=== PATIENT | male | born 2000 | race African-American/Black ===

== ENCOUNTER 2019-04-21 13:37 | Emergency (ER) | payer OTHER ==
[~2019-04-21] VITALS: Ht 175.3 cm; Wt 75.0 kg
[2019-04-21 14:51] LABS: BASOPHILS % 0.6 % (0.0-2.0); EOSINOPHILS % 0.3 % (0.0-5.0); HEMOGLOBIN. 14.5 g/dL (14.0-18.0); LYMPHOCYTES % 20.6 % (20.0-50.0); MEAN CORPUSCULAR HEMOGLOBIN 29.2 pg (28.0-32.0); MEAN CORPUSCULAR VOLUME 84.8 fL (80.0-94.0); MONOCYTES % 6.7 % (2.0-8.0); NEUTROPHILS % 71.8 % (40.0-76.0); PLATELET 133 x1000/uL (130-400); RED BLOOD CELL COUNT 4.96 mill/uL (4.7-6.1)
[2019-04-21 14:55] LABS: CHLORIDE 111 mEq/L (98-107)
[2019-04-21 14:59] LABS: ETHANOL BLOOD < 10 mg/dL
[2019-04-21 17:00] LABS: CLARITY URINE CLEAR (CLEAR); COLOR URINE YELLOW (YELLOW); KETONES URINE NEGATIVE (NEGATIVE); LEUKOCYTE ESTERASE URINE NEGATIVE (NEGATIVE); NITRITE URINE NEGATIVE (NEGATIVE); OCCULT BLOOD URINE NEGATIVE (NEGATIVE); PROTEIN URINE NEGATIVE (NEGATIVE); UROBILINOGEN URINE 0.2 E.U./dL (0.2-1.0)
[2019-04-21 17:16] LABS: *AMPHETAMINES SCREEN URINE NEGATIVE (NEGATIVE); *BARBITURATES SCREEN URINE NEGATIVE (NEGATIVE)
[2019-04-21 17:17] LABS: *BENZODIAZEPINES SCREEN URINE NEGATIVE (NEGATIVE); *COCAINE SCREEN URINE NEGATIVE (NEGATIVE); CANNABINOID URINE SCREEN NEGATIVE (NEGATIVE); METHADONE URINE SCREEN NEGATIVE (NEGATIVE); OPIATES URINE SCREEN NEGATIVE (NEGATIVE); PHENCYCLIDINE URINE SCREEN NEGATIVE (NEGATIVE)
[2019-04-22] MEDS ORDERED: OLANZAPINE 5MG TABLET ODT PO ONE (02:00)
[2019-04-22] MEDS ORDERED: OLANZAPINE 5MG TABLET ODT PO PRN (02:00)
[2019-04-22 02:44] LABS: T4 FREE 1.19 ng/dL (0.76-1.46)
[2019-04-22] MEDS ORDERED: LORAZEPAM 1MG TABLET PO ONE (16:30)
[2019-04-22 17:25] VITALS: BP 116/72
== END 2019-04-22 18:30 ==
LOC: EDBD 13:37 → ER 13:37
DX: R45.851 Suicidal ideations (principal); R45.850 Homicidal ideations
CPT/HCPCS: 36415; 80305; 80307; 80320; 80329; 84439; 84443; 93005; 99285; G0480